=== PATIENT | female | born 1990 | race Hispanic/Latino ===

== ENCOUNTER 2025-03-30 05:33 | Day surgery (SDC) | payer BC ==
[2025-03-28 10:46] VITALS: BMI 31.4
[2025-03-28 11:20] LABS: Glucose, Urine (Dipstick) Normal (Negative); Leukocyte 100 (Negative); Protein, Urine (Dipstick) Negative (Neg-Trace); Specific Gravity, Urine 1.010 (1.005-1.030)
[2025-03-28 11:23] LABS: Hematocrit 34.9 % (34.9-44.5); Hemoglobin 11.3 g/dL (12.0-15.5); Mean Corpuscular Hemoglobin 29.9 pg (27.0-33.0); Mean Corpuscular Volume 92.3 fL (81.6-98.3); Platelet Count 505 10x3/uL (150-450); Red Blood Cell (RBC) Count 3.78 10x6/uL (3.90-5.03); White Blood Cell (WBC) Count 9.46 10x3/uL (3.5-10.5)
[2025-03-28 11:29] LABS: BHCG - Serum Negative (NEGATIVE); Pregs Control Background? CLEAR/WHITE (CLR/WHITE); Pregs Control Bar Appear? YES (CONTROL BAR)
[2025-03-30] MEDS ORDERED: Rocuronium Bromide 10 MG/ML (10ML VIAL) ONE (06:26)
[2025-03-30] MEDS ORDERED: PROPOFOL 20 ML ONE (06:26)
[2025-03-30] MEDS ORDERED: Bupivacaine HCl 0.5%/Epinephrine 1:200,000/PF 30 ml Vial ONE (06:29)
[2025-03-30] MEDS ORDERED: CEFAZOLIN 2 GM VIAL ONE (06:48)
[2025-03-30] MEDS ORDERED: Ketorolac Tromethamine 30 MG (1 mL) VIAL ONE (08:07)
[2025-03-30] MEDS ORDERED: SUGAMMADEX SODIUM 200 MG/2 ML VIAL ONE (08:59)
[2025-03-30 12:16] LABS: Hematocrit 32.0 % (34.9-44.5); Hemoglobin 10.7 g/dL (12.0-15.5)
== END 2025-03-30 16:38 | disposition home or self-care (01) ==
LOC: CSHSDC 05:33
PROVIDERS: ATTEND Obstetrics & Gynecology
PROC: 0UT98ZZ Resection of Uterus, Via Natural or Artificial Opening Endoscopic (ICD-10-PCS; principal; 2025-03-30)
DX: N80.03 Adenomyosis of the uterus (principal); N87.9 Dysplasia of cervix uteri, unspecified; N88.8 Other specified noninflammatory disorders of cervix uteri; N72 Inflammatory disease of cervix uteri; N83.8 Other noninflammatory disorders of ovary, fallopian tube and broad ligament; N83.511 Torsion of right ovary and ovarian pedicle; N73.6 Female pelvic peritoneal adhesions (postinfective)
CPT/HCPCS: 36415; 81003; 84703; 85014; 85018; 85027; 86304; 86850; 86900; 86901; 88112; 88307; C1776; C1889; J1100; J1885; J2270; J2704; J3010; S2900